=== PATIENT | female | born 1955 | race Caucasian/White ===

== ENCOUNTER → 2021-04-23 | Outpatient (CLI) | payer MEDICARE ==
[~2021-04-23] MED LIST: COLACE 100MG C100 MG PO; MIRALAX17 GM PO; NORCO 7.5-3251 EACH PO; NORVASC 5 MG TAB5 MG PO; TECFIDERA240 MG PO
== END ==
LOC: EMI 09:45
DX: G35 Multiple sclerosis (principal); M47.812 Spondylosis without myelopathy or radiculopathy, cervical region; M50.20 Other cervical disc displacement, unspecified cervical region; M25.78 Osteophyte, vertebrae; M48.02 Spinal stenosis, cervical region
CPT/HCPCS: 70553; 72156; A9577